=== PATIENT | male | born 1950 | race African-American/Black ===

== ENCOUNTER 2022-08-23 14:39 | Inpatient (IN) | payer OTHER ==
[~2022-08-23] VITALS: Ht 188 cm; Wt 91.6 kg
[2022-08-23] MEDS ORDERED: METOPROLOL TARTRATE 25MG TABLET PO ONE (16:15)
[2022-08-23 16:47] LABS: BASOPHILS % 0.3 % (0.0-2.0); EOSINOPHILS % 0.1 % (0.0-5.0); HEMATOCRIT. 36.5 % (42.0-52.0); HEMOGLOBIN. 11.7 g/dL (14.0-18.0); LYMPHOCYTES % 7.7 % (20.0-50.0); MEAN CORPUSCULAR HEMOGLOBIN 26.5 pg (28.0-32.0); MEAN CORPUSCULAR VOLUME 82.7 fL (80.0-94.0); MEAN PLATELET VOLUME 11.3 fl (7.4-10.4); MONOCYTES % 7.5 % (2.0-8.0); NEUTROPHILS % 84.4 % (40.0-76.0); PLATELET 117 x1000/uL (130-400); RED BLOOD CELL COUNT 4.42 mill/uL (4.7-6.1); RED CELL DISTRIBUTION WIDTH 15.1 % (11.6-14.6)
[2022-08-23 16:54] LABS: CHLORIDE 108 mEq/L (98-107)
[2022-08-23 17:08] LABS: ETHANOL BLOOD < 10 mg/dL
[2022-08-23] MEDS ORDERED: FUROSEMIDE 40MG/4ML VIAL IVP NR (21:00)
[2022-08-24] VITALS (35 sets, daily range): BP systolic 99–155; BP diastolic 36–116
[2022-08-24] MEDS ORDERED: ADENOSINE 3 MG/ML 2ML VIAL IV ONE ×4 (05:53→06:00)
[2022-08-24] MEDS ORDERED: LORAZEPAM 2MG/ML CPJ IV ONE (06:15)
[2022-08-24 10:36] LABS: *AMPHETAMINES SCREEN URINE NEGATIVE (NEGATIVE); *BARBITURATES SCREEN URINE NEGATIVE (NEGATIVE); *BENZODIAZEPINES SCREEN URINE PRESUMTIVE POSITIVE (NEGATIVE); *COCAINE SCREEN URINE NEGATIVE (NEGATIVE); CANNABINOID URINE SCREEN NEGATIVE (NEGATIVE); METHADONE URINE SCREEN NEGATIVE (NEGATIVE); OPIATES URINE SCREEN NEGATIVE (NEGATIVE); PHENCYCLIDINE URINE SCREEN NEGATIVE (NEGATIVE)
[2022-08-24] MEDS ORDERED: GUAIFENESIN 200MG/10ML SUGAR FREE UDC PO PRN (11:00)
[2022-08-24] MEDS ORDERED: DIPHENHYDRAMINE 50MG/ML VIAL IV PRN (11:00)
[2022-08-24] MEDS ORDERED: MAGNESIUM/ALUMINUM HYDROXIDE/SIMETHICONE 30ML UDC PO PRN (11:00)
[2022-08-24] MEDS ORDERED: ONDANSETRON HCL 4MG/2ML INJ IV PRN (11:00)
[2022-08-24] MEDS ORDERED: CLONIDINE 0.1MG TABLET PO PRN (11:00)
[2022-08-24] MEDS ORDERED: ACETAMINOPHEN 325MG TABLET PO PRN ×2 (11:00)
[2022-08-24] MEDS ORDERED: ZOLPIDEM TARTRATE 5MG TABLET PO PRN (11:00)
[2022-08-24] MEDS ORDERED: METOPROLOL TARTRATE 50MG TABLET PO SCH ×2 (11:30→21:00)
[2022-08-24] MEDS ORDERED: DILT240C94 PO (11:31)
[2022-08-24] MEDS ORDERED: DABI150C PO (11:34)
[2022-08-24 13:08] LABS: INR 1.3; PROTHROMBIN TIME 13.4 sec (9.6-11.0)
[2022-08-24 13:20] LABS: T4 FREE 1.5 ng/dL (0.76-1.46)
[2022-08-24] MEDS ORDERED: ADENOSINE 3 MG/ML 2ML VIAL IV NR (14:15)
[2022-08-24] MEDS: SODIUM CHLORIDE 0.9% INJ 3ML FLUSH IVF SCH ×2 (14:29→22:49)
[2022-08-24] MEDS ORDERED: HYDROCODONE/ACETAMINOPHEN 5/325MG TABLET PO SCH (14:30)
[2022-08-24] MEDS: ENOXAPARIN 100MG/ML SYR SUBCUT SCH (14:30)
[2022-08-24] MEDS ORDERED: TRAZ-251 MT (14:44)
[2022-08-24] MEDS ORDERED: NALOXONE HCL 0.4MG/ML VIAL IV PRN (15:00)
[2022-08-24] MEDS ORDERED: DILTIAZEM HCL 120MG CAPSULE ER 24HR PO SCH (16:00)
[2022-08-24] MEDS ORDERED: MAGNESIUM 2 G PREMIX 50 ML IV NR (17:00)
[2022-08-24] MEDS ORDERED: AMIODARONE HCL 900 MG in DEXT 5% WATER 500 ML IV SCH (17:30)
[2022-08-24] MEDS: FUROSEMIDE 40MG/4ML VIAL IVP SCH (17:34)
[2022-08-24] MEDS ORDERED: BENZONATATE 100MG CAPSULE PO PRN (18:30)
[2022-08-24] MEDS: CARVEDILOL 3.125 MG TABLET PO SCH (21:00)
[2022-08-24] MEDS ORDERED: TRAZODONE HCL 50MG TABLET PO SCH (21:00)
[2022-08-24] MEDS: ATORVASTATIN CALCIUM 20MG TABLET PO SCH (21:27)
[2022-08-25] VITALS (90 sets, daily range): BP systolic 66–142; BP diastolic 22–113
[2022-08-25] MEDS: ENOXAPARIN 100MG/ML SYR SUBCUT SCH ×2 (01:30→13:57)
[2022-08-25 05:51] LABS: EOSINOPHILS % 1.2 % (0.0-5.0); HEMATOCRIT. 35.8 % (42.0-52.0); HEMOGLOBIN. 11.6 g/dL (14.0-18.0); LYMPHOCYTES % 14.4 % (20.0-50.0); MEAN CORPUSCULAR HEMOGLOBIN 26.5 pg (28.0-32.0); MEAN PLATELET VOLUME 11.9 fl (7.4-10.4); MONOCYTES % 7.6 % (2.0-8.0); NEUTROPHILS % 75.8 % (40.0-76.0); PLATELET 115 x1000/uL (130-400); RED BLOOD CELL COUNT 4.37 mill/uL (4.7-6.1); RED CELL DISTRIBUTION WIDTH 14.9 % (11.6-14.6)
[2022-08-25] MEDS: SODIUM CHLORIDE 0.9% INJ 3ML FLUSH IVF SCH ×3 (06:00→22:00)
[2022-08-25 06:36] LABS: CHLORIDE 106 mEq/L (98-107)
[2022-08-25 06:46] LABS: PHOSPHORUS 3.5 mg/dL (2.5-4.9)
[2022-08-25] MEDS: FUROSEMIDE 40MG/4ML VIAL IVP SCH ×2 (07:24→18:17)
[2022-08-25] MEDS: PANTOPRAZOLE SODIUM 40 MG/VIAL IV SCH (08:13)
[2022-08-25] MEDS ORDERED: MAGNESIUM 2 G PREMIX 50 ML IV SCH (09:00)
[2022-08-25] MEDS: LOSARTAN POTASSIUM 25 MG TABLET PO SCH (09:28)
[2022-08-25] MEDS: CARVEDILOL 3.125 MG TABLET PO SCH ×2 (09:28→21:00)
[2022-08-25] MEDS ORDERED: CHLORDIAZEPOXIDE 25MG CAPSULE PO SCH (14:00)
[2022-08-25] MEDS ORDERED: CHLORDIAZEPOXIDE 25MG CAPSULE PO PRN (14:00)
[2022-08-25] MEDS: AMIODARONE HCL 200 MG TABLET PO SCH ×2 (18:16→23:16)
[2022-08-25] MEDS: ATORVASTATIN CALCIUM 20MG TABLET PO SCH (21:45)
[2022-08-26] VITALS (47 sets, daily range): BP systolic 101–132; BP diastolic 67–98
[2022-08-26] MEDS: ENOXAPARIN 100MG/ML SYR SUBCUT SCH ×2 (01:30→13:30)
[2022-08-26 05:36] LABS: BASOPHILS % 0.8 % (0.0-2.0); EOSINOPHILS % 1.6 % (0.0-5.0); HEMATOCRIT. 36.5 % (42.0-52.0); HEMOGLOBIN. 11.8 g/dL (14.0-18.0); LYMPHOCYTES % 19.6 % (20.0-50.0); MEAN CORPUSCULAR HEMOGLOBIN 26.4 pg (28.0-32.0); MEAN CORPUSCULAR VOLUME 81.5 fL (80.0-94.0); MEAN PLATELET VOLUME 11.1 fl (7.4-10.4); MONOCYTES % 9.5 % (2.0-8.0); NEUTROPHILS % 68.5 % (40.0-76.0); PLATELET 115 x1000/uL (130-400); RED BLOOD CELL COUNT 4.48 mill/uL (4.7-6.1); RED CELL DISTRIBUTION WIDTH 15.3 % (11.6-14.6)
[2022-08-26 05:51] LABS: CHLORIDE 102 mEq/L (98-107)
[2022-08-26 05:54] LABS: INR 1.2; PARTIAL THROMBOPLASTIN TIME 30.5 sec (23.4-31.0); PROTHROMBIN TIME 12.3 sec (9.6-11.0)
[2022-08-26] MEDS: SODIUM CHLORIDE 0.9% INJ 3ML FLUSH IVF SCH ×3 (06:00→22:36)
[2022-08-26] MEDS: FUROSEMIDE 40MG/4ML VIAL IVP SCH ×2 (07:12→18:47)
[2022-08-26] MEDS: LOSARTAN POTASSIUM 25 MG TABLET PO SCH (08:06)
[2022-08-26] MEDS: CARVEDILOL 3.125 MG TABLET PO SCH ×2 (08:06→21:34)
[2022-08-26] MEDS: AMIODARONE HCL 200 MG TABLET PO SCH ×2 (08:36→21:34)
[2022-08-26] MEDS: PANTOPRAZOLE SODIUM 40 MG/VIAL IV SCH (09:56)
[2022-08-26] MEDS ORDERED: IODIXANOL 320MG/ML 100 ML BOTTLE IV ONE ×2 (11:14→12:58)
[2022-08-26] MEDS ORDERED: HEPARIN 1000 UNITS/ML 10ML ONE (11:14)
[2022-08-26] MEDS ORDERED: DIPHENHYDRAMINE 50MG/ML VIAL ONE (11:37)
[2022-08-26] MEDS ORDERED: FENTANYL CITRATE/PF 50MCG/ML 2ML VIAL ONE (11:37)
[2022-08-26] MEDS ORDERED: MIDAZOLAM HCL 2 MG/2 ML VIAL ONE (11:38)
[2022-08-26] MEDS ORDERED: LIDOCAINE HCL 1% 20ML VIAL (Pyxis) INJ ONE (11:43)
[2022-08-26] MEDS ORDERED: MAGNESIUM 2 G PREMIX 50 ML IV NR ×2 (12:00→13:00)
[2022-08-26] MEDS ORDERED: VERAPAMIL HCL 2.5 MG/1 ML 2ML VIAL IV ONE (12:13)
[2022-08-26] MEDS ORDERED: CLOPIDOGREL 75MG TABLET ONE (13:18)
[2022-08-26 13:22] LABS: BG BASE EXCESS 1.4 mmol/L (-2.0-2.0); BG BASE EXCESS 4.2 mmol/L (-2.0-2.0); BG CARBOXYHEMOGLOBIN 0.4 % (0.5-1.5); BG DEOXYHEMOGLOBIN 2.5 % (0.0-5.0); BG DEOXYHEMOGLOBIN 41.3 % (0.0-5.0); BG HCO3 ACT 25.5 mmol/L (22.0-26.0); BG HCO3 ACT 30.1 mmol/L (22.0-26.0); BG METHEMOGLOBIN 0.1 % (0.0-1.5); BG METHEMOGLOBIN 0.3 % (0.0-1.5); BG OXYGEN SATURATION 58.2 % (92.0-98.5); BG OXYGEN SATURATION 97.5 % (92.0-98.5); BG OXYHEMOGLOBIN 57.6 % (94.0-97.0); BG OXYHEMOGLOBIN 96.8 % (94.0-97.0); BG PCO2 38.5 mmHg (35.0-45.0); BG PCO2 50.3 mmHg (35.0-45.0); BG PH 7.395 (7.350-7.450); BG PH 7.439 (7.350-7.450); BG PO2 31.3 mmHg (75.0-100.0); BG PO2 98.3 mmHg (75.0-100.0); BG SAMPLE SITE ALINE; BG TOTAL HEMOGLOBIN 13.7 g/dL (12.0-18.0)
[2022-08-26] MEDS ORDERED: ATROPINE SULFATE 1MG/10ML SYR IV PRN (13:30)
[2022-08-26] MEDS: ATORVASTATIN CALCIUM 20MG TABLET PO SCH (21:34)
[2022-08-27] VITALS (52 sets, daily range): BP systolic 94–161; BP diastolic 35–93
[2022-08-27] MEDS: ENOXAPARIN 100MG/ML SYR SUBCUT SCH (00:59)
[2022-08-27] MEDS: SODIUM CHLORIDE 0.9% INJ 3ML FLUSH IVF SCH ×3 (06:33→21:02)
[2022-08-27 06:55] LABS: BASOPHILS % 0.6 % (0.0-2.0); EOSINOPHILS % 0.9 % (0.0-5.0); HEMATOCRIT. 37.7 % (42.0-52.0); HEMOGLOBIN. 12.3 g/dL (14.0-18.0); LYMPHOCYTES % 14.2 % (20.0-50.0); MEAN CORPUSCULAR HEMOGLOBIN 26.6 pg (28.0-32.0); MEAN CORPUSCULAR VOLUME 81.3 fL (80.0-94.0); MEAN PLATELET VOLUME 11.1 fl (7.4-10.4); MONOCYTES % 10.1 % (2.0-8.0); NEUTROPHILS % 74.2 % (40.0-76.0); PLATELET 131 x1000/uL (130-400); RED BLOOD CELL COUNT 4.63 mill/uL (4.7-6.1); RED CELL DISTRIBUTION WIDTH 14.7 % (11.6-14.6)
[2022-08-27 07:12] LABS: CHLORIDE 100 mEq/L (98-107)
[2022-08-27] MEDS ORDERED: ASPIRIN 325MG EC TABLET PO NR (08:00)
[2022-08-27] MEDS: FUROSEMIDE 40MG/4ML VIAL IVP SCH ×2 (08:46→18:04)
[2022-08-27] MEDS: CLOPIDOGREL 75MG TABLET PO SCH (08:46)
[2022-08-27] MEDS: LOSARTAN POTASSIUM 25 MG TABLET PO SCH (08:46)
[2022-08-27] MEDS: PANTOPRAZOLE SODIUM 40 MG/VIAL IV SCH (08:46)
[2022-08-27] MEDS: AMIODARONE HCL 200 MG TABLET PO SCH ×2 (08:47→21:02)
[2022-08-27] MEDS: CARVEDILOL 3.125 MG TABLET PO SCH ×2 (09:00→21:01)
[2022-08-27] MEDS ORDERED: MAGNESIUM 2 G PREMIX 50 ML IV SCH (10:00)
[2022-08-27] MEDS: ATORVASTATIN CALCIUM 20MG TABLET PO SCH (21:01)
[2022-08-28] VITALS (13 sets, daily range): BP systolic 105–123; BP diastolic 62–83
[2022-08-28] MEDS: SODIUM CHLORIDE 0.9% INJ 3ML FLUSH IVF SCH (05:19)
[2022-08-28] MEDS: FUROSEMIDE 40MG/4ML VIAL IVP SCH (08:42)
[2022-08-28] MEDS: PANTOPRAZOLE SODIUM 40 MG/VIAL IV SCH (08:42)
[2022-08-28] MEDS: CARVEDILOL 3.125 MG TABLET PO SCH (08:42)
[2022-08-28] MEDS: AMIODARONE HCL 200 MG TABLET PO SCH (08:42)
[2022-08-28] MEDS: CLOPIDOGREL 75MG TABLET PO SCH (08:43)
[2022-08-28] MEDS: LOSARTAN POTASSIUM 25 MG TABLET PO SCH (08:48)
[2022-08-28] MEDS ORDERED: ASPIRIN 81MG EC TABLET PO SCH (09:00)
== END 2022-08-28 08:56 | disposition short-term general hospital (02) | DRG 246 ==
LOC: EDBD 14:39 → ER 14:39 → 3WST 08-24 07:10 → EDBEDREQ 08-24 07:13 → ENRESERV 08-24 08:40 → CVICU 08-24 16:58
PROVIDERS: ADMIT Internal Medicine; ATTEND Internal Medicine
PROC: 5A2204Z Restoration of Cardiac Rhythm, Single (ICD-10-PCS; 2022-08-24)
PROC: 027034Z Dilation of Coronary Artery, One Artery with Drug-eluting Intraluminal Device, Percutaneous Approach (ICD-10-PCS; principal; 2022-08-26)
PROC: 4A023N8 Measurement of Cardiac Sampling and Pressure, Bilateral, Percutaneous Approach (ICD-10-PCS; 2022-08-26)
PROC: B211YZZ Fluoroscopy of Multiple Coronary Arteries using Other Contrast (ICD-10-PCS; 2022-08-26)
DX: I21.4 Non-ST elevation (NSTEMI) myocardial infarction (principal); I50.21 Acute systolic (congestive) heart failure; I47.1 Supraventricular tachycardia; I28.1 Aneurysm of pulmonary artery; I42.9 Cardiomyopathy, unspecified; J96.10 Chronic respiratory failure, unspecified whether with hypoxia or hypercapnia; Z20.822 Contact with and (suspected) exposure to COVID-19; I11.0 Hypertensive heart disease with heart failure; K21.9 Gastro-esophageal reflux disease without esophagitis; E78.00 Pure hypercholesterolemia, unspecified; I25.10 Atherosclerotic heart disease of native coronary artery without angina pectoris; I34.0 Nonrheumatic mitral (valve) insufficiency; D69.6 Thrombocytopenia, unspecified; D64.9 Anemia, unspecified; F17.210 Nicotine dependence, cigarettes, uncomplicated; Z86.711 Personal history of pulmonary embolism; Z87.01 Personal history of pneumonia (recurrent); Z99.81 Dependence on supplemental oxygen
CPT/HCPCS: 36415; 36600; 71045; 71275; 80048; 80053; 80061; 80305; 80320; 82375; 82805; 83036; 83735; 83880; 84100; 84439; 84443; 84484; 85025; 85347; 85379; 87426; 92928; 93005; 93306; 93460; 93970; 99291; C1769; C1874; C1887; C1893; C9113; C9803; J0153; J0282; J1200; J1644; J1650; J1940; J2060; J2250; J3010; J3475; J3490; J7060; Q9967; G0480